=== PATIENT | female | born 1990 | race Caucasian/White ===

== ENCOUNTER 2019-05-13 11:54 | Inpatient (IN) ==
[2019-05-13] MEDS ORDERED: Naloxone 0.4 MG/ML INJ IVP PRN (12:14)
[2019-05-13] MEDS ORDERED: *HR* Nalbuphine 10 MG/ML AMPUL IVP PRN (12:14)
[2019-05-13] MEDS ORDERED: Famotidine 20 MG/2 ML VIAL IVP PRN (12:14)
[2019-05-13] MEDS ORDERED: Lidocaine 1% 20 ML MDV INFILT PRN (12:14)
[2019-05-13] MEDS ORDERED: Ondansetron 4 MG/2 ML VIAL IVP PRN (12:14)
[2019-05-13] MEDS ORDERED: Metoclopramide 10 MG/2 ML VIAL IVP PRN (12:14)
[2019-05-13] MEDS ORDERED: Ringers Solution, Lactated 1,000 ML IVC SCH (12:15)
[2019-05-13] MEDS ORDERED: miSOPROStoL 25 MCG TABLET PO PRN (12:16)
[2019-05-13 12:57] LABS: Basophils % 0.3 %; Eosinophils # 0.1 K/mcL (0.0-0.6); Eosinophils % 0.9 %; Hematocrit 37.5 % (35.3-44.9); Hemoglobin 12.2 g/dL (11.5-15.4); Immature Granulocytes % 1.3 % (0-4); Lymphocytes # 2.4 K/mcL (0.6-4.6); Lymphocytes % 19.8 %; Mean Corpuscular HGB Conc 32.5 g/dL (31.6-35.5); Mean Corpuscular Hemoglobin 28.1 pg (28.0-33.3); Mean Corpuscular Volume 86.4 fL (83.0-100.0); Mean Platelet Volume 10.2 fL (9.4-12.4); Monocytes # 0.6 K/mcL (0.0-1.3); Monocytes % 5.3 %; Neutrophils # 8.6 K/mcL (1.6-8.9); Platelet Count 210 K/mcL (140-400); Red Blood Count 4.34 M/mcL (3.82-4.97); Red Cell Distribution Width 16.1 % (11.5-14.5); Segmented Neutrophils % 72.4 %; White Blood Count 11.9 K/mcL (4.3-11.1)
[2019-05-13 13:07] LABS: Amphetamine Screen,Urine Negative ng/mL (Cutoff=1000); Barbiturate Screen,Urine Negative ng/mL (Cutoff=200); Benzodiazepines Screen,Urine Negative ng/mL (Cutoff=200); Cannabinoid Screen,Urine Negative ng/mL (Cutoff = 50); Cocaine Screen,Urine Negative ng/mL (Cutoff= 300); Opiate Screen,Urine Negative ng/mL (Cutoff=300); Phencyclidine Screen,Urine Negative ng/mL (Cutoff=25)
[2019-05-13] MEDS ORDERED: Epidural Premix (fent/bupiv) 110 ML EP SCH (14:45)
[2019-05-13] MEDS ORDERED: Ringers Solution, Lactated 1,000 ML ONE (18:19)
[2019-05-13] MEDS ORDERED: Oxytocin 20 units/ LR 1000 mL 20 UNIT/1,000 ML BAG IVC SCH (20:00)
[2019-05-14] MEDS ORDERED: *HR* Ropivacaine/PF 0.5% 20 ML VIAL ONE (00:12)
[2019-05-14] MEDS ORDERED: *HR* FentaNYL (PF) 100 MCG/2 ML VIAL ONE (00:12)
[2019-05-14] MEDS ORDERED: Measles/Mumps/Rubella Vacc 0.5 ML VIAL SQ PRN (06:55)
[2019-05-14] MEDS ORDERED: Rho Immune Globulin 1,500 UNIT SYRINGE IM PRN (06:55)
[2019-05-14] MEDS ORDERED: Acetaminophen 325 MG TABLET PO PRN (06:55)
[2019-05-14] MEDS ORDERED: Sennosides 8.6 MG TABLET PO PRN (06:55)
[2019-05-14] MEDS ORDERED: Oxytocin 20 units/ LR 1000 mL 20 UNIT/1,000 ML BAG IVC SCH (06:55)
[2019-05-14] MEDS: Prenatal Vit/FA 1 EACH TABLET PO SCH (08:48)
[2019-05-14] MEDS: Ibuprofen 600 MG TABLET PO PRN (08:48)
[2019-05-14] MEDS ORDERED: NON-FORMULARY MEDICATION 1 EACH EACH (Pnv No.95/Ferrous Fum/Folic Ac [Prenatal Caplet] 1 T PO SCH (09:00)
[2019-05-15 07:28] LABS: Basophils % 0.4 %; Eosinophils # 0.2 K/mcL (0.0-0.6); Eosinophils % 1.9 %; Hematocrit 30.8 % (35.3-44.9); Hemoglobin 9.9 g/dL (11.5-15.4); Immature Granulocytes % 1.7 % (0-4); Lymphocytes # 2.9 K/mcL (0.6-4.6); Lymphocytes % 27.4 %; Mean Corpuscular HGB Conc 32.1 g/dL (31.6-35.5); Mean Corpuscular Hemoglobin 27.9 pg (28.0-33.3); Mean Corpuscular Volume 86.8 fL (83.0-100.0); Mean Platelet Volume 10.3 fL (9.4-12.4); Monocytes # 0.6 K/mcL (0.0-1.3); Monocytes % 5.5 %; Neutrophils # 6.8 K/mcL (1.6-8.9); Platelet Count 156 K/mcL (140-400); Red Blood Count 3.55 M/mcL (3.82-4.97); Red Cell Distribution Width 16.6 % (11.5-14.5); Segmented Neutrophils % 63.1 %; White Blood Count 10.7 K/mcL (4.3-11.1)
[2019-05-15] MEDS: Prenatal Vit/FA 1 EACH TABLET PO SCH (07:57)
[2019-05-15] MEDS: Ibuprofen 600 MG TABLET PO PRN (07:57)
[2019-05-15 08:03] VITALS: BP 103/66
== END 2019-05-15 12:45 | disposition home or self-care (01) | DRG 560 ==
LOC: 1NENULAB 11:54 → 1NENUOBS 05-14 06:26
PROVIDERS: ADMIT Obstetrics & Gynecology; ATTEND Obstetrics & Gynecology